=== PATIENT | female | born 2000 | race Caucasian/White ===

== ENCOUNTER 2021-01-11 17:08 | Emergency (ER) | payer MEDICAID ==
[~2021-01-11] VITALS: Ht 157.5 cm; Wt 100.2 kg
[2021-01-11 17:15] VITALS: Ht 157.5 cm; Wt 100.2 kg
[2021-01-11] MEDS ORDERED: ONDANSETRON4 M3 PO (20:05)
[2021-01-11] MEDS ORDERED: MOT800 PO ×2 (20:05→20:09)
[2021-01-11 21:18] VITALS: BP 125/78
== END 2021-01-11 21:19 | disposition home or self-care (01) ==
LOC: ED 17:08
DX: R10.813 Right lower quadrant abdominal tenderness (principal)
CPT/HCPCS: J1885